=== PATIENT | female | born 2005 | race Caucasian/White ===

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

== ENCOUNTER 2025-04-08 14:22 | Outpatient (CLI) | payer OTHER, SELFPAY ==
--- NOTE | 2025-04-08 | ECG_ITS ---
Test Date: 2025-04-08 14:45:08 Measurements Intervals [place] Rate: 80 P: 66 TX: 148 QRS: 61 QRSD: 92 T: 13 QT: 379 QTc: 439 Interpretive Statements SINUS RHYTHM WITH SINUS ARRHYTHMIA NONSPECIFIC T-WAVE ABNORMALITY- INFERIOR LEADS BASELINE ARTIFACT- II, III, V3-V6 BORDERLINE ECG No previous ECG available for comparison Electronically Signed On 04-08-2025 15:14:12 ORE BRIDGE OPERATOR by Michael Ochoa D.O.
--- OUTSIDE RECORDS SUMMARY | 2025-04-08 15:31 | XMS_ITS ---
Author Organization Unknown ENCOUNTERS Encounter Performer Location Date Diagnosis Diagnosis Status Outpatient Renetta Vaughn [address] [id number] *Note: Encounters from your own facility or health system may be excluded. Allergies, Adverse Reactions, Alerts Allergen Type Severity Identification Date Medications Name Date Quantity Days Supplied [facility] Number
--- OUTSIDE RECORDS SUMMARY | 2025-04-08 15:31 | XMS_ITS | Clinical Summary ---
Author Organization [facility] Address [address] [place] [address] Phone Care Team Providers Care Sand Digger Name Role Phone Unavailable Primary Care Provider Unavailabl e Social History Tobacco Use Types Packs/Day Years Used Date Smoking Tobacco: Never Assessed Comments Unknown Sex and Gender Information Value Date Recorded Sex Assigned at Not on file Legal Sex Female 11:26 AM CDT Gender Identity Not on file Sexual Orientation Not on file Plan of Treatment Upcoming Encounters Date Type Department Care Team (Late st Contact Info) Description 04/30/2025 1:00 PM ORACLE PROGRAMMER Office Visit [facility] - Primary [facility] [address] [place] [address] Sharon Pearson, CORN BREEDER, BEAM DYER OPERATOR [address] [place] [address] Health Maintenance Due Date Last Done Comments Hepatitis C Virus (HCV) Screening 2005 Influenza Immunization (#1) 12/21/202401/21, 02/02/2013, 03/31/2012 SARS-COV-2 Immunization ( season) 2024 09/25/2020, 09/03/2020 Respiratory Syncytial Virus (RSV) Immunization (Adult) (1 - 1-dose 75+ series) 2080 Hepatitis B Immunization Completed 006, 2005, 2005, Additional history exists Pneumococcal Immunization Combined Completed 12/09/2009, 06/12/2006, 2005, Additional history exists TdaP Immunization Completed 11/29/2016 Human Papillomavirus (HPV) Immunization Completed 08/03/2020, 08/04/2019 Meningococcal Immunization (ACWY) Completed 11/23/2022, 11/29/2016 Meningococcal B Immunization Completed 11/27/2023, 11/23/2022 Rotavirus Immunization Aged Out No lo nger eligible based on patient's age to complete this topic Insurance [facility]
--- OUTSIDE RECORDS SUMMARY | 2025-04-08 15:31 | XMS_ITS | Clinical Summary ---
Author Organization [facility]'s Address [address] [id number] Care Team Providers Care Operations And Maintenance Manager Name Role Phone Sanjiv Muniz MD, Kristin Primary Care Provider Medications No known medications Active Problems No known active problems Family History Relation Name Status Comments Brother Alive Father Alive Mother Alive Social History Tobacco Use Types Packs/Day Years Used Date Smoking Tobacco: Never Passive Smoke Exposure: Never Smokeless Tobacco: Never Tobacco Cessation:Counseling Given: Not Answered Alcohol Use Standard Drinks/Week Comments Never 0 (1 standard drink = 0.6 oz pur e alcohol) Comments Unknown Sex and Gender Information Value Date Recorded Sex Assigned at Female 03/02/2022 9:32 AM EST Legal Sex Female 9:32 AM EST Gender Identity Not on file Sexual Orientation Not on file Last Filed Vital Signs Vital Sign Reading Time Taken Comments Blood Pressure - - Pulse - - Temperature - - Respiratory Rate - - Oxygen Saturation - - Inhaled Oxygen Concentration - - Weight 101 kg (221 lb 9 oz) 01/16/2023 8:59 AM C DT Height 176 cm (5' 9.29) 01/16/2023 8:59 AM CDT Body Mass Index 32.44 01/16/2023 8:59 AM CDT Body Mass Index Percentile 96.35% 01/16/2023 8:5 9 AM CDT Growth Chart: [facility] (Girls, 2- 20 Years) Plan of Treatment Not on file Insurance [facility] Care Teams Operations And Maintenance Manager Relationship Specialty Start Date End Date Tatianna Kincaid MD [address] [place] [address] PCP - General Pediatrics 01/22/23
--- OUTSIDE RECORDS SUMMARY | 2025-04-08 15:31 | XMS_ITS | Clinical Summary ---
Author Organization [facility] [employer] Address [address] [place] [address] Care Team Providers Care Emergency Response Technician Name Role Phone Unavailable Primary Care Provider Unavailabl e Source Comments [facility] [employer] [employer],non-owned Affiliates and Associated Physician Practices is amultiple site organization consisting of ambulatory clinics and hospital sitesin [place], [place], [place] and [place]. This disclosure is being madepursuant to the Care Everywhere program and may not contain all information available regarding this patient. Last updated 18.[facility] [employer] [employer] Allergies No known active allergies Medications * Be aware that medications may not be up to date on this document. Alwaysverify current medications with the patient. No known medications Social History Tobacco Use Types Packs/Day Years Used Date Smoking Tobacco: Never Smokeless Tobacco: Never Comments No Sex and Gender Information Value Date Recorded Sex Assigned at Not on file Legal Sex Female 3:00 PM WEIGHT SHIFTER Gender Identity Not on file Sexual Orientation Not on file Last Filed Vital Signs Vital Sign Reading Time Taken Comments Blood Pressure 126/68 05/03/2020 3:10 PM WEIGHT SHIFTER Pulse 94 05/03/2020 6:52 PM WEIGHT SHIFTER Temperature 37.2 C (98.9 F) 05/03/2020 6:52 PM WEIGHT SHIFTER Respiratory Rate 20 05/03/2020 3:10 PM WEIGHT SHIFTER Oxygen Saturation - - Inhaled Oxygen Concentration - - Weight 89.4 kg (197 lb 1.5 oz) 05/03/2020 3:10 P M WEIGHT SHIFTER Height 171 cm (5' 7.32) 05/03/2020 3:10 PM WEIGHT SHIFTER Body Mass Index 30.57 05/03/2020 3:10 PM WEIGHT SHIFTER Body Mass Index Percentile 96.63% 05/03/2020 3:1 0 PM WEIGHT SHIFTER Growth Chart: CDC (Girls, 2- 20 Years) Plan of Treatment Health Maintenance Due Date Last Done Comments HIV SCREENING 2020 HPV VACCINE (1 - 3-dose series) 2020 CHLAMYDIA/GONORRHEA SCREENING 2021 MENINGOCOCCAL (Group B) VACC INE SHARED DECISION-MAKING (1 of 2 - Standard) 2021 HEPATITIS C SCREENING 06/07/2023 DEPRESSION SCREENING 04/22/2024 DTAP/TDAP/TD VACCINES (1 - Tdap) 2024 HEPATITIS B VACCINE (1 of 3 - 19+ 3-dose series) 2024 COVID-19 VACCINE (1 - 2024-2 6 season) 2024 INFLUENZA VACCINE (#1) 2024 ZOSTER VACCINE (1 of 2) 2055 HIB VACCINE Aged Out No longer eligi ble based on patient's age to complete this topic MENINGOCOCCAL GROUPS A/C/Y/W VACCINE Aged Out No longer eligible b ased on patient's age to complete this topic PNEUMOCOCCAL VACCINE Aged Out No long er eligible based on patient's age to complete this topic Insurance
--- OUTSIDE RECORDS SUMMARY | 2025-04-08 15:31 | XMS_ITS | Clinical Summary ---
Author Organization [facility] Address [facility] [place] [address] Care Team Providers Care Commissioned Defence Force Officer Name Role Phone Unique Hinkle MD Primary Care Provider Allergies No known active allergies Medications Zirgan 0.15 % ophthalmic gel solution APPLY TO THE LEFT EYE DIRECTED FIVE TIMES DAILY FOR 7 DAYS Active spironolactone (ALDACTONE) 100 mg tablet Take 1 tablet (100 mg total) by mouth daily 4 Active valACYclovir (VALTREX) 500 mg tablet Take 1 tablet (500 mg total) by mouth daily 90 tablet 11 5 Active prednisoLONE acetate (PRED FORTE) 1 % ophthalmic suspension Administer 1 drop into the left eye 2 (two) times a day 15 mL 11 5 Active prednisoLONE acetate (PRED FORTE) 1 % ophthalmic suspension Administer 1 drop into the left eye 2 (two) times a day 15 mL 5 03/26/20 25 Discontinu ed(Reorder ) valACYclovir (VALTREX) 500 mg tablet Take 1 tablet (500 mg total) by mouth daily 90 tablet 5 03/26/20 25 Discontinu ed(Reorder ) Active Problems Problem Noted Date Diagnosed Date 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 Hypertrophy of bladder 06/10/2013 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 Urinary tract infection 03/23/2013 Encopresis 09/24/2012 Chronic cystitis 10/25/2011 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 Incomplete emptying of bladder 08/02/2010 Chronic constipation 08/02/2010 Encounters Date Type Department Care Team Description 03/26/2025 1:45 PM METER READER Office Visit [facility] Medicine [facility] [address] [place] [address] Rayshawn Bills MD 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) from Last 3 Months Medical History Medical History Date Comments History of urinary tract infection Urinary Tract Infection - (Added by TW Conv) Urinary incontinence Diurnal enu resis - (Added by TW Conv) Full incontinence of feces Encop resis - (Added by TW Conv) Urinary incontinence Diurnal enu resis - (Added by TW Conv) Nocturnal enuresis Primary noctu rnal enuresis - (Added by TW Conv) Personal history of other sp ecified conditions History of urinary incontine nce - (Added by TW Conv) Social History Tobacco Use Types Packs/Day Years Used Date Smoking Tobacco: Never Comments Unknown Sex and Gender Information Value Date Recorded Sex Assigned at Not on file Legal Sex Female 4:13 PM METER READER Gender Identity Not on file Sexual Orientation Not on file Growth Chart Information Age Height Weight [id number] th Percentile BMI Percentile Head Circum Head Circum Percentile Date 7 years 135.9 cm (4' 5.5) 27.2 kg (60 lb 0.2 oz) 25.51%* 2013 7 years 138.7 cm (4' 6.6) 28.6 kg (63 lb 0.1 oz) 28.80%* 2013 7 years 135.6 cm (4' 5.4) 26.1 kg (57 lb 9.7 oz) 15.30%* 2012 7 years 131.8 cm (4' 3.9) 26.8 kg (58 lb 15.9 oz) 46.77%* 2012 7 years 132.1 cm (4' 4) 25.9 kg (57 lb 0.2 oz) 33.19%* 2012 6 years 128 cm (4' 2.39) 25.8 kg (56 lb 14.1 oz) 58.39%* 2011 6 years 129.5 cm (4' 3) 26.3 kg (58 lb 0.1 oz) 57.58%* 2011 6 years 124.5 cm (4' 1) 25 kg (55 lb 0.1 oz) 69.19%* 2011 6 years 127.5 cm (4' 2.2) 25.1 kg (55 lb 5.4 oz) 54.42%* 2011 6 years 121.9 cm (4') 20.9 kg (46 lb 0.2 oz) 16.34%* 2011 5 years 121.9 cm (4') 22.2 kg (49 lb 0.1 oz) 43.29%* 2010 5 years 118.1 cm (3' 10.5) 21.8 kg (47 lb 15.9 oz) 54.47%* 62.30%* 2010 5 years 116.8 cm (3' 10) 20.9 kg (46 lb 0.2 oz) 47.34%* 54.25%* 2010 4 years 114.3 cm (3' 9) 20 kg (44 lb) 48.29%* 53.87%* 2010 * [facility] (Girls, 2-20 Years) Last Filed Vital Signs Vital Sign Reading Time Taken Comments Blood Pressure 114/62 05/12/2013 11:57 AM METER READER Pulse 102 04/22/2012 12:20 PM METER READER Temperature - - Respiratory Rate - - Oxygen Saturation 98% 04/22/2012 12: 20 PM METER READER Inhaled Oxygen Concentration - - Weight 27.2 kg (60 lb 0.2 oz) 06/10/2013 1:09 PM METER READER Height 135.9 cm (4' 5.5) 06/10/2013 1:09 PM METER READER Body Mass Index 14.74 06/10/2013 1:09 PM METER READER Body Mass Index Percentile 25.51% 06/10/2013 1:0 9 PM METER READER Growth Chart: [facility] (Girls, 2- 20 Years) Plan of Treatment Health Maintenance Due Date Last Done Comments Depression Screening 2005 Hepatitis C Screening 2005 Regular Well Visit/Exam 18-64 2023 Covid-19 Vaccine (2024-2 6 season) 2024 09/25/2020, 09/03/2020 Influenza Vaccine (#1) 2024 5, 02/02/2013, 03/31/2012 DTaP/Tdap/Td Vaccine (7 - Td or Tdap) 11/29/2026 11/29/2016, 12/09/2009, 01/23/2007, Additional history exists Hepatitis B Screening Completed 2005 , 2005, 2005, Additional history exists Pneumococcal vaccine <65 Completed 010, 06/12/2006, 2005, Additional history exists Varicella Vaccines Completed 11/03/2010, 06/12/2006 HPV Vaccines Completed 08/03/2020, 08/04/2019 Meningococcal Vaccine Completed 11/23/2022, 017 Meningococcal B Vaccine Completed 11/27/2023, 11/23 Insurance [facility] CHO[facility] PLUS [facility] CHO[facility] PLUS [facility] Care Teams Commissioned Defence [employer] Officer Relationship Specialty Start Date End Date Unique Hinkle MD [address] [place] [id number] PCP - General Pediatrics 07/24/23
[2025-04-08 15:34] LABS: Hematocrit 39.0 % (37.0-47.0); Hemoglobin 12.7 g/dL (12.0-15.0); Immature Granulocyte Percent A 0.3 % (0-0.5); Lymphocytes Absolute Auto 2.46 K/mm3 (0.9-3.2); Mean Corpuscular HGB Conc 32.6 g/dl (32-36); Mean Corpuscular Hemoglobin 29.7 pg (26-34); Mean Corpuscular Volume 91.1 fl (80-100); Nucleated Red Blood Cells Absolute Auto 0.000 K/mm3 (0.0-0.012); Nucleated Red Blood Cells Perc 0.0 % (0.0-0.2); Platelet Count Result 352 k/mm3 (150-375); Red Blood Count 4.28 M/mm3 (4.2-5.4); White Blood Count 8.7 K/mm3 (4.5-10.0)
[2025-04-08 15:50] LABS: Alanine Aminotransferase 19 U/L (6-35); Albumin Level 4.6 g/dL (3.7-5.6); Alkaline Phosphatase 67 U/L (45-116); Anion Gap 9 mmol/L (4-12); Aspartate Amino Transferase 29 U/L (14-36); Bilirubin,Total 0.3 mg/dL (0.2-1.3); Blood Urea Nitrogen 12 mg/dL (8-21); Calcium 9.4 mg/dL (8.9-10.7); Carbon Dioxide 27 mmol/L (22-30); Chloride 103 mmol/L (98-107); Estimated Glomerular Filt Rate > 60; Glucose 77 mg/dL (65-110); Potassium 3.8 mmol/L (3.4-5.0); Sodium 139 mmol/L (134-143); Total Protein 8.2 g/dL (6.3-8.6)
[2025-04-08 16:26] LABS: Thyroid Stimulating Hormone 4.800 uIU/mL (0.465-4.680)
== END 2025-04-08 14:23 | disposition home or self-care (01) ==
LOC: ANHLAB 14:28
PROVIDERS: PCP Pediatrics Adolescent Medicine; Visit Provider Nurse Practitioner Pediatrics
DX: R55 Syncope and collapse (principal); R94.31 Abnormal electrocardiogram [ECG] [EKG]
CPT/HCPCS: 36415; 80053; 84443; 85025; 93005